=== PATIENT | female | born 1990 | race Caucasian/White ===

== ENCOUNTER 2019-07-25 08:13 | Outpatient (CLI) | payer OTHER, SELFPAY ==
--- NOTE | ~2019-07-25 | XR_ITS ---
EXAMINATION: XR small bowel follow through EXAM DATE: 07/25/2019 10:07 INDICATION: Intussusception in February, status post partial small bowel resection. Abdominal pain. TECHNIQUE: [employer] radiograph was acquired. Small bowel series was performed with thin barium solutio n. Spot images of the terminal ileum were acquired. The DAP for this procedure was 48 Gycm2. There is no prior study for comparison. FINDINGS: On the 15 minute image, the stomach was distended with contrast and there was a small to mo derate-sized hiatal hernia with reflux demonstrated. Ileal and jejunal fold patterns are normal. There is no small bowel wall thickening or mass effect d isplacing small bowel. There are no intraluminal filling defects identified. There is no small anju l dilation. Terminal ileum is normal in appearance. Contrast reached the colon at 1 hours time. IMPRESSION: Small to moderate-sized hiatal hernia with reflux demonstrated. Unremarkable small bowel . Reviewed, dictated and finalized at location A. ER [facility] IMPRESSION: Small to moderate-sized hiatal hernia with reflux demonstrated. Un remarkable small bowel.
== END 2019-07-25 08:14 | disposition home or self-care (01) ==
LOC: ANHIMG 08:15
PROVIDERS: PCP Family Medicine; Visit Provider Internal Medicine Gastroenterology
DX: K56.1 Intussusception (principal); K44.9 Diaphragmatic hernia without obstruction or gangrene
CPT/HCPCS: 74250

== ENCOUNTER 2020-12-22 16:22 | Outpatient (RCR) | payer OTHER, SELFPAY ==
[2020-12-08 17:01] VITALS: BP 119/73; PULSE 86
[2020-12-08 17:16] VITALS: BP 117/67; PULSE 85
[2020-12-08 17:39] VITALS: BP 117/67; PULSE 85
[2020-12-11 08:39] VITALS: BP 111/66; PULSE 82
[2020-12-22 18:45] VITALS: BP 92/70; PULSE 80
== END 2020-12-23 15:40 | disposition home or self-care (01) ==
LOC: ANHOBOP 16:22
PROVIDERS: PCP Nurse Practitioner Family; Visit Provider Obstetrics & Gynecology
DX: O24.419 Gestational diabetes mellitus in pregnancy, unspecified control (principal); Z3A.33 33 weeks gestation of pregnancy; Z3A.34 34 weeks gestation of pregnancy; Z3A.35 35 weeks gestation of pregnancy
CPT/HCPCS: 59025

== ENCOUNTER 2020-12-23 08:37 | Inpatient (IN) | payer OTHER, SELFPAY ==
[2020-12-23] VITALS (128 sets, daily range): BP systolic 87–143; BP diastolic 40–90; PULSE 58–149; RESP 16–18; TEMP 36.3–36.8; O2SAT 87–100; BMI 36.8
[2020-12-23 09:58] LABS: Glucose Point of Care 101 mg/dl (65-105)
--- NOTE | 2020-12-23 10:00 | LDADM ---
This patient, Marianne Bell, was admitted to Labor/Delivery/Recovery 104 on 12/23/20 at 08:37. Plans for labor, pain management and were discussed with patient. Patient/family oriented to hospital policies and general routines including ID bracelet, bed and alarms, visiting hours, pain management, procedures, bathroom and other care routines, personal items, smoking policy, room service/diet and guest tray routines, security routines, and visiting hours. Patient/Family are encouraged to report perceived risks to care and to ask questions if they do not understand what they are told or what they should do. See OBIX for further documentation.
[2020-12-23 10:27] LABS: Basophils Absolute Auto 0.1 K/mm3 (0.0-0.1); Basophils Percent Auto 0.5 % (0.2-1.2); Eosinophils Absolute Auto 0.1 K/mm3 (0-0.3); Eosinophils Percent Auto 0.5 % (0-4.4); Hematocrit 34.1 % (37.0-47.0); Hemoglobin 11.1 g/dL (12.0-15.0); Immature Granulocyte Absolute 0.24 K/mm3 (0.00-0.031); Immature Granulocyte Percent A 2.1 % (0-0.5); Lymphocytes Absolute Auto 1.99 K/mm3 (0.9-3.2); Lymphocytes Percent Auto 17.5 % (18.3-44.2); Mean Corpuscular HGB Conc 32.6 g/dl (32-36); Mean Corpuscular Hemoglobin 28.3 pg (26-34); Monocytes Percent Auto 8.7 % (2.6-8.5); Neutrophils Absolute Auto 8.1 K/mm3 (1.3-6.7); Neutrophils Percent Auto 70.7 % (45.5-73.1); Platelet Count Result 187 k/mm3 (150-375); Red Blood Count 3.92 M/mm3 (4.2-5.4); Red Cell Distribution Width 18.6 % (11.5-14.5); White Blood Count 11.4 K/mm3 (4.5-10.0)
[2020-12-23] MEDS: LACTATED RINGERS 1,000 ML 125 ML IV CONT ×2 (10:30→17:26)
[2020-12-23] MEDS: AMPICILLIN 2 GM/NS 100 ML 2 GM/100 ML BAG IVPB (10:30)
[2020-12-23 11:58] LABS: Glucose Point of Care 70 mg/dl (65-105)
[2020-12-23] MEDS: OXYTOCIN 30 UNITS/NS 500 ML 30 UNITS/500 ML BAG IV CONT (13:48)
[2020-12-23] MEDS: AMPICILLIN 1 GM/NS 50 ML 1 GM/50 ML BAG IVPB ×2 (14:48→18:42)
[2020-12-23] MEDS: fentaNYL CITRATE INJ (*CRX) 100 MCG/2 ML VIAL IV PUSH (16:51)
--- NOTE | 2020-12-23 17:21 | WPDANESEPP ---
Anes - Eval Pre Procedure Procedure: labor epidural Date/Time: 12/23/20 17:21 Surgeon: matthew Pre Op Diagnosis: rupture of membrane Patient Data Age: 30 Gender: F Height: 1.63 m Weight: 97.2 kg Last Vital Signs Pulse 82 12/23/20 17:00 BP 123/80 12/23/20 17:00 Allergies Allergy/AdvReac Type Severity Reaction Status Date / Time acetaminophen Allergy Unknown VOMITING Verified 07/10/19 10:49 hydrocodone Allergy Unknown VOMITING Verified 07/10/19 10:49 Home Medications Medication Instructions Recorded Confirmed Type famotidine 20 mg tablet 20 mg PO DAILY PRN 07/10/19 12/23/20 History omeprazole 40 mg capsule,delayed 40 mg PO DAILY 07/10/19 12/23/20 History release PNV cmb#95-ferrous fumarate-FA 1 tablet PO DAILY 12/23/20 12/23/20 History [] ergocalciferol (vitamin D2) 50,000 unit PO 2XW 12/23/20 12/23/20 History ferrous sulfate 325 mg PO DAILY 12/23/20 12/23/20 History insulin NPH isoph U-100 human 20 unit SUBCUT HS 12/23/20 12/23/20 History [Humulin N NPH U-100 Insulin] sertraline 50 mg PO HS 12/23/20 12/23/20 History Laboratory Tests 12/23/20 12/23/20 12/23/20 09:48 09:54 09:54 WBC 11.4 K/mm3 H K/mm3 (4.5-10.0) RBC 3.92 M/mm3 L M/mm3 (4.2-5.4) Hgb 11.1 g/dL L g/dL (12.0-15.0) Hct 34.1 % L % (37.0-47.0) MCV 87.0 fl fl (80-100) MCH 28.3 pg pg (26-34) MCHC 32.6 g/dl g/dl (32-36) RDW 18.6 % H % (11.5-14.5) Plt Count 187 k/mm3 k/mm3 (150-375) MPV 13.0 fl H fl (7.4-10.4) Immature Gran % (Auto) 2.1 % H % (0-0.5) Neut % (Auto) 70.7 % % (45.5-73.1) Lymph % (Auto) 17.5 % L % (18.3-44.2) [place] % (Auto) 8.7 % H % (2.6-8.5) Eos % (Auto) 0.5 % % (0-4.4) Baso % (Auto) 0.5 % % (0.2-1.2) Lymph # (Auto) 1.99 K/mm3 K/mm3 (0.9-3.2) [place] # (Auto) 1.0 K/mm3 H K/mm3 (0.1-0.6) Eos # (Auto) 0.1 K/mm3 K/mm3 (0-0.3) Baso # (Auto) 0.1 K/mm3 K/mm3 (0.0-0.1) Abs Immat Gran (auto) 0.24 K/mm3 H K/mm3 (0.00-0.031) Absolute Neuts (auto) 8.1 K/mm3 H K/mm3 (1.3-6.7) Absolute Nucleated RBC 0.0 K/mm3 K/mm3 (0.0-0.012) Nucleated RBC % 0.0 % % (0.0-0.2) POC Capillary Glucose 101 mg/dl mg/dl (65-105) RPR Pending Blood Type Antibody Screen 12/23/20 12/23/20 09:54 11:54 WBC RBC Hgb Hct MCV MCH MCHC RDW Plt Count MPV Immature Gran % (Auto) Neut % (Auto) Lymph % (Auto) [place] % (Auto) Eos % (Auto) Baso % (Auto) Lymph # (Auto) [place] # (Auto) Eos # (Auto) Baso # (Auto) Abs Immat Gran (auto) Absolute Neuts (auto) Absolute Nucleated RBC Nucleated RBC % POC Capillary Glucose 70 mg/dl mg/dl (65-105) RPR Blood Type O Positive Antibody Screen Negative Patient hx anesthesia problems: none Family hx anesthesia problems: none PMFSH Past Medical History Medical History (Updated 07/22/19 @ 14:37 by Celestino Mims MD) Abdominal pain Anxiety HLD (hyperlipidemia) IBS (irritable bowel syndrome) Nausea and vomiting in adult Normal colonoscopy (~2019) Small bowel intussusception Surgical History Surgical History History of esophagogastroduodenoscopy (EGD) (~2019) S/P small bowel resection Family History Family History Father Family history of elevated blood lipids Sibling Family history of elevated blood lipids Grandparent Carcinoma of colon Other Family history of malignant neoplasm of breast Soc
[2020-12-23 17:49] LABS: Glucose Point of Care 72 mg/dl (65-105)
[2020-12-23 19:52] LABS: Glucose Point of Care 78 mg/dl (65-105)
[2020-12-23] MEDS: ONDANSETRON INJ 4 MG/2 ML VIAL IV PUSH (21:23)
[2020-12-23 23:40] LABS: Glucose Point of Care 95 mg/dl (65-105)
[2020-12-24] VITALS (141 sets, daily range): BP systolic 102–151; BP diastolic 49–93; PULSE 72–164; RESP 18; TEMP 36.4–36.9; O2SAT 94–100
--- NOTE | 2020-12-24 00:18 | P.HP_ITS ---
Obstetrics - Admit Note Admission Note: record reviewed. No pertinent additions to the history and/or any subsequent changes in the physical findings that are not consistent with the expected course of the were found. Called to bedside for decel strip reviewed. decel noted at 1830 5 min bradycardia after epidural with bp noted to be low resolved with IV fluids and position changes. some random variable and late decels noted with good variablilty. recent decel at 1200 resolved with position changes. cervix 5/90/- 2 cm pitocin off and amnio infusion started. Additions to the history and/or subsequent changes in the physical findings follow. None.
[2020-12-24] MEDS: SODIUM CHLORIDE 0.9% IV 300 ML 600 ML I-UTERINE (00:21)
[2020-12-24] MEDS: SODIUM CHLORIDE 0.9% IV 1,000 ML 150 ML I-UTERINE ×2 (01:02→05:48)
[2020-12-24] MEDS: AMPICILLIN 1 GM/NS 50 ML 1 GM/50 ML BAG IVPB ×2 (01:41→05:49)
[2020-12-24] MEDS: LACTATED RINGERS 1,000 ML 125 ML IV CONT (03:45)
[2020-12-24 05:00] LABS: Glucose Point of Care 91 mg/dl (65-105)
[2020-12-24] MEDS: fentaNYL CITRATE INJ (*CRX) 100 MCG/2 ML VIAL 50 MCG IV PUSH (07:35)
[2020-12-24] MEDS: OXYTOCIN 30 UNITS/NS 500 ML 30 UNITS/500 ML BAG 125 UNITS IV CONT (07:41)
[2020-12-24] MEDS: IBUPROFEN 600 MG TABLET PO ×2 (08:49→22:54)
[2020-12-24] MEDS: WITCH HAZEL 40 PADS 1 PAD TOPICAL (08:50)
[2020-12-24] MEDS: BENZOCAINE 20% AER SPR (*SP) 56 GM CAN 1 SPRAY TOPICAL (11:08)
[2020-12-24 12:11] LABS: Rapid Plasma Reagin Non-Reactive (NonReactive)
--- NOTE | 2020-12-24 15:40 | PC.NURSE ---
Mother called out for assist with feeding. mother reports infant has not latched since and has bottle fed after all attempts. Discussed establishing in the may be more difficult due to their immaturity, infant may be less alert, have less stamina, and have greater difficulty with latch, suck, and swallow. Skin is intact on both nipples, no redness or bruising noted. is able to freely thrust tongue past gum ridge. Reviewed feeding cues, frequencies, duration of feedings, feeding elimination flow sheet, and signs of adequate intake. Demonstrated stimulation techniques to wake for feeding. Assisted with infant to breast. Reviewed positioning/alignment in cross cradle, holding breast in ?U? hold and guided asymmetrical latch on. able to latch correctly. Infant nursed weakly with a few good draws and occasional swallowing noted followed with long pausing. Suggested mother stimulate while feeding to increase stimulate, increase intake and to assist with maintaining deep latch. Reviewed signs of a correct latch, effective nursing and suck swallow ratio. would slip to shallow latch, mother reports tenderness. Demonstrated how to adjust latch more deeply while feeding. Mother reports she can feel change in latch and has no tenderness. Nipple care reviewed of lanolin after feedings, warm compresses as needed. Discussed the difference of effective feeding and ineffective feeding. Discussed infant is latching with some organized suck swallow, he is not adequately transfer milk at this time and needs to be supplemented after each feeding. Mother should initiate pumping to stimulate milk supply. Parents voice understanding to all. Instructed mother to call out for RN assistance if she is unable to latch infant for feeding or she has discomfort with nursing.
--- NOTE | 2020-12-24 16:00 | PC.NURSE ---
Breast pump provided due to ineffective feeding. Instructions given on breast pump care and usage, pumping schedule, nipple care, and collection and storage of breast milk. Encouraged [id number], breast massage and manual expression to stimulate supply. Assessed patient for correct flange size, placement and draw. Patient verbalizes and demonstrates understanding of instructions.
[2020-12-24] MEDS: DOCUSATE SODIUM 100 MG CAPSULE PO (22:55)
[2020-12-25 00:09] VITALS: BP 113/55; PULSE 96; RESP 18; TEMP 36.6; O2SAT 97
[2020-12-25 04:10] VITALS: BP 106/62; PULSE 98; RESP 20; TEMP 36.3; O2SAT 97
[2020-12-25 05:46] LABS: Hematocrit 22.1 % (37.0-47.0)
[2020-12-25 06:16] LABS: Hemoglobin 6.9 g/dL (12.0-15.0)
--- NOTE | 2020-12-25 07:54 | PM.OBPNVD ---
OB - PN: Subj Subjective Date/time seen: 12/25/20 07:54 S: doing okay denies dizziness bleeding minimal OB - PN: Obj Data Labs CBC & Chem 7: 12/25/20 04:05 Labs: Laboratory Results - last 24 hr 12/23/20 12/25/20 09:54 04:05 Hgb 6.9 L* D Hct 22.1 L RPR Non-reactive OB - PN A/P Assessment and Plan (1) (normal spontaneous vaginal delivery): Code(s): O80 - Encounter for full-term uncomplicated delivery Status: Acute Assessment and Plan: continue with pp care (2) PPH ( hemorrhage): Code(s): O72.1 - Other immediate hemorrhage Status: Acute Assessment and Plan: stable continue to monitor vitals and symptoms. iron supplements. Time Spent With Patient Time: Total time spent is greater than 50% in coordination of care (as documented) at patient's floor/unit and/or counseling patient: Exam Narrative: Exam Narrative: ff below umbilicus
[2020-12-25] MEDS: MULTIVIT/MIN/PREN/FOL AC/IRON TABLET 1 TAB PO (09:04)
[2020-12-25] MEDS: POLYSACCHARIDE IRON COMPLEX 150 MG CAPSULE PO (09:05)
[2020-12-25] MEDS: DOCUSATE SODIUM 100 MG CAPSULE PO ×2 (09:05→17:37)
[2020-12-25] MEDS: IBUPROFEN 600 MG TABLET PO ×3 (09:05→20:53)
[2020-12-25 09:10] VITALS: BP 133/67; PULSE 105; RESP 16; TEMP 36.5; O2SAT 98
[2020-12-25] MEDS: PANTOPRAZOLE 40 MG TABLET PO ×2 (10:26→17:37)
--- NOTE | 2020-12-25 13:23 | WPDANLDPN2 ---
Anes-Prog Note L&D Date/Time: 12/25/20 13:23 Comfortable throughout: labor and delivery Neuraxial method: epidural Epidural/Spinal procedure site: clean & non-tender Neuro status: Neuro function grossly intact. Cardiovascular status: normal Respiratory status: normal Airway patency: baseline Mental status: baseline Post-Op hydration status: normal Vital Signs: Last Vital Signs Temp 36.5 C 12/25/20 09:10 Pulse 105 H 12/25/20 09:10 Resp 16 12/25/20 09:10 BP 133/67 12/25/20 09:10 Pulse Ox 98 12/25/20 09:10 Pain score (VAS): 2 Post-procedural complaints: none Patient feedback: Patient satisfied with anesthetic care.
--- NOTE | 2020-12-25 14:23 | PM.OBPRVD ---
OB - Delivery Note Procedure Delivery date: 12/24/20 events: Labor < 37 Weeks, Gestational Diabetes, Labor Augmentation, Premature Rupture of Membrane and Prolonged Rupture of Membrane Intrapartal events: Bleeding Delivery augmentation: pitocin Delivery monitor: external FHT, external uterine, internal FHT and internal uterine Route of delivery: Laceration Description: Vaginal - 2nd Degree Delivery repair: vicryl Specimen: Yes Quantitative Blood Loss (ml): 942 Anesthesia type: Epidural Disposition: floor Baby Date of : 12/24/20 Time of : 07:02 Weeks of gestation at delivery: 36 Infant gender: Male Weight (pounds): 6 Weight (ounces): 4 presentation: vertex position: Left Occiput Anterior Placenta delivery description: Spontaneous cord vessel description: 3 Vessels and Clamped/Cut score one minute: 5 score five minutes: 7 score ten minutes: 9
[2020-12-25] MEDS: ACETAMINOPHEN 325 MG TABLET 650 MG PO (17:36)
[2020-12-25 19:40] VITALS: BP 128/80; PULSE 89; RESP 16; TEMP 37.1; O2SAT 99
--- NOTE | 2020-12-25 19:40 | PC.NURSE ---
Patient viewed the discharge video Mother & Baby Care, The First Two Weeks online. Patient was given the opportunity and encouraged to ask questions. Patient verbalized understanding of information shared and has been given the mother/baby guide for home reference.
[2020-12-25] MEDS: SERTRALINE HCL 50 MG TABLET PO (20:53)
[2020-12-26] MEDS: IBUPROFEN 600 MG TABLET PO ×2 (04:55→10:32)
[2020-12-26 10:30] VITALS: PULSE 89; RESP 16; O2SAT 99
[2020-12-26] MEDS: DOCUSATE SODIUM 100 MG CAPSULE PO (10:31)
[2020-12-26] MEDS: PANTOPRAZOLE 40 MG TABLET PO (10:32)
[2020-12-26] MEDS: MULTIVIT/MIN/PREN/FOL AC/IRON TABLET 1 TAB PO (10:32)
--- NOTE | 2020-12-26 10:46 | PM.OBPNVD ---
OB - PN: Subj Subjective Date/time seen: 12/26/20 10:46 Patient comments: no complaints and pain well controlled baby status: doing well and nursing well OB - PN: Obj Data Labs CBC & Chem 7: 12/25/20 04:05 OB - PN A/P Assessment and Plan (1) PPH ( hemorrhage): Code(s): O72.1 - Other immediate hemorrhage Status: Acute Assessment and Plan: iron BID x 8 wks (2) (normal spontaneous vaginal delivery): Code(s): O80 - Encounter for full-term uncomplicated delivery Status: Acute Assessment and Plan: DC home Plans micronor Time Spent With Patient Time: Total time spent is greater than 50% in coordination of care (as documented) at patient's floor/unit and/or counseling patient: Exam : Bimanual exam- vagina & uterus: other (Uterus firm, nt @U)
[2020-12-26 11:48] VITALS: BP 131/71; PULSE 91; RESP 16; TEMP 36.6; O2SAT 100
[2020-12-28 08:24] VITALS: BP 128/76; PULSE 95; RESP 20; TEMP 36.9; O2SAT 100
--- NOTE | 2021-01-05 11:29 | PM.OBDSVD ---
DS: Admitting Diagnosis Admitting Diagnosis Admitting Diagnosis: PROM OB - DS: Summary OB Procedures : Ultrasound OB Procedures Intrapartum: Spontaneous Vag Delivery OB Procedures: : None Time Spent with Patient Time attestation: Total time spent providing and/or coordinating discharge services: DS: Data Data Completed and Pending Completed studies during hospitalization: Pending at discharge 12/24/20 07:06 Surgical [PTH] Routine Discharge Plan Discharge Attending physician on discharge: Eliu Jin Discharging Clinician: Eliu Jin Patient Disposition: Home, Self-Care Activity: pelvic rest Diet: regular Discharge Instructions: Education: Mom and Baby Guide Given to: Mother Follow-Up: Call your delivering provider's office for an appointment to be seen in: 4 Weeks Mom and baby should come to the [facility] for the follow-up appointment. Appointment Date/Time: December 28, 2020 at 8:00 am What to expect at your follow-up visit: Blood Pressure Check Physical Assessment Call [phone] if you are unable to keep your appointment time. BREAST CARE: * Wear a snug supportive bra. * For engorgement discomfort: Breast Feeding: * Apply warm moist washcloths * Express milk as needed to relieve engorgement * Wear loose clothing Bottle Feeding: * May apply ice packs * For sore nipples: * Identify correct latch-on * Apply warm moist washcloths before and after nursing * Air dry nipples after nursing * May apply Lansinoh cream to nipples EPISIOTOMY/PERINEAL CARE: * Until bleeding stops, use your neris bottle after urinating * Change your pad frequently throughout the day * You may take sitz baths several times a day (fill your bathtub with warm water and soak for 20 minutes.) Do NOT bathe in the water * No tub baths until seen by your physician - You may shower ACTIVITY: * Rest as much as possible. * Do not exercise or lift anything heavier than your baby (such as laundry or other children.) * Avoid stairs or driving as much as possible. * Do not put anything into the vagina. No douching, tampons, or sexual activity until seen by physician. NOTIFY PHYSICIAN IF YOU HAVE ANY QUESTIONS OR IF ANY OF THE FOLLOWING SYMPTOMS OCCUR: * If your vaginal delivery becomes red, swollen, or more painful than what you have experienced in the hospital. * If your vaginal bleeding becomes foul smelling. * If your vaginal bleeding becomes more heavy than a period or if your bleeding changes from pink to bright red. However, you may pass an occasional walnut-sized clot once or twice for the first week . * If you experience a sharp, shooting pain in your calves. * If you discover a hard, reddened area on your breast or if you experience flu-like symptoms. DIET: * Eat regular, well-balanced meals. * Drink plenty of fluids daily. If , drink to thirst. Patient Instructions: Vaginal Delivery (DC) Stand Alone Forms: General Discharge Information Follow-up/Referrals: Eliu Jin MD [Physician] - Discharge Medications: New norethindrone (contraceptive) 0.35 mg tablet 0.35 mg PO DAILY Qty: 84 RF: 3 Continued omeprazole 40 mg capsule,delayed release(DR/EC) 40 mg PO DAILY RF: 0 famotidine 20 mg tablet 20 mg PO DAILY PRN (Reason: Heartburn) RF: 0 ergocalciferol (vitamin D2) 1,250 mcg (50,000 unit) capsule 50,000 unit PO 2XW RF: 0 sertraline 50 mg tablet 50 mg PO HS RF: 0 ferrous sulfate 325 mg (65 mg iron) Tablet 325 mg PO DAILY RF: 0 PNV cmb#95-ferrous fumarate-FA [] 28 mg iron- 800 mcg Tablet 1 tablet PO DAILY RF: 0 Discontinued Humulin N NPH U-100 Insulin 100 unit/mL suspension 20 unit SUBCUT HS RF: 0 Date of admission: 12/23/20 08:37 Primary Care Provider: WILDER,SPRING Admitting
== END 2020-12-26 12:33 | disposition home or self-care (01) | DRG 806 ==
LOC: ANHOB2 12-26 11:18 → ANHLDR 12-29 11:24 → ANHOB2 12-29 11:24
PROVIDERS: Admitting Provider Obstetrics & Gynecology; PCP Nurse Practitioner Family; Visit Provider Obstetrics & Gynecology Gynecology
DX: O60.14X0 Preterm labor third trimester with preterm delivery third trimester, not applicable or unspecified (principal); O72.1 Other immediate postpartum hemorrhage; Z37.0 Single live birth; O76 Abnormality in fetal heart rate and rhythm complicating labor and delivery; O70.1 Second degree perineal laceration during delivery; Z3A.36 36 weeks gestation of pregnancy; O42.913 Preterm premature rupture of membranes, unspecified as to length of time between rupture and onset of labor, third trimester
CPT/HCPCS: 36415; 59025; 82948; 84112; 85014; 85018; 85025; 86592; 86850; 86900; 86901; 88307; A9270; J0290; J2405; J2590; J2795; J3010; J7030; J7120

== ENCOUNTER 2021-01-06 11:02 | Outpatient (RCR) | payer OTHER, SELFPAY ==
--- NOTE | 2021-01-06 11:15 | PC.NURSE ---
IN 1010 OUT 1115 HISTORY: Pt. delivered at [facility] at 36 weeks. had no complications after delivery. Mother had complications after delivery of a large blood loss. is now 13 days old. Infant appears to be well cared for. has been seen by ICP as scheduled. Infant last seen by ICP on at one week. Mother reports: was latching well in the hospital with minimal supplementation needed. Once home and her milk came in refused to latch. Mother began pumping and bottle feeding. Infant remains sleepy and needs to be awoken to feed for most feeding. does not show feeding cues or make any attempts to latch with attempts. When is attempted at breast, he does not open and mother is unable to get to latch. Mother states she pumps 1-2 oz every 3-4 hours with a Spectra pump. Infant will take 2 oz by bottle every 2-3 hours of EBM/formula. Infant is sleepy while feeding on the bottle, mother will stop a few times to wake to complete feedings. Mother wishes: For to breastfeed and increase supply using less formula. OBSERVATION: Currently at 9 wets per day and 9 /brown/yellow seedy pasty stools per day. weight:6#4 Discharge weight: Last Weight: 6#3 at 1 week ICP Tongue is able to move freely past gum ridge, bottom lip flanges easily, upper lip has a thick frenulum. Mother has everted nipples with skin intact no redness, blisters, scabbing or abrasions noted. Reviewed feeding cues, frequencies, duration of feedings, feeding elimination flow sheet, and signs of adequate intake. Demonstrated stimulation techniques to wake infant for feeding. Stimulation for several minutes before feeding cues noted. Last feeding 3.5 hours before attempt. Assisted with infant to breast. Mother was attempting in cradle positioning. Reviewed positioning/alignment in cross cradle, holding breast in U hold and guided asymmetrical latch on. Several attempts made infant was unable to draw nipple in to latch correctly. Offered and explain a nipple shield and how this may assist transitioning infant from bottle to breast. Discussed nipple shield precautions and possible complications. Instructions given on application and cleaning of shield. Patient able to return demonstration on proper application of shield. Discussed the need to continue regular pumping if continues to nurse with the shield. Patient verbalizes understanding. Infant was able to latch with shield. nursed eagerly with steady draws for short bursts followed with long pausing. Constant stimulation needed to keep infant awake and nursing. Demonstrated breast compressions to keep milk flowing and infant nursing. would respond with bursts of nursing. Infant had more pausing than effective nursing with occasional swallowing noted. Reviewed signs of a correct latch, effective nursing and suck swallow ratio. was able to maintain latch without discomfort to mother. Discussed is not nursing effectively enough to discontinue supplementation at this time. PLAN: Mother will follow above feeding plan to latch to one breast per feeding for 15-20 minutes, then supplement and pump. Mother will continue to offer the 2 oz after each feeding, increasing as infant desires. Mother will continue to pump after each feeding to assist with milk supply, with expectation that nursing at the breast each feeding may assist with increasing milk supply. Once infant is eagerly feeding on one breast for 10-15 minutes, mother will then offer second breast per feeding before supplementing. Advised mother not to discontinue supplementation until pre post weight feeding evaluation by ICP or . Mother will call with further questions or concerns. Follow up phone call scheduled for Monday01/11/21.
== END 2021-01-26 09:58 | disposition home or self-care (01) ==
LOC: ANHOBOP 11:02
PROVIDERS: PCP Nurse Practitioner Family; Visit Provider Pediatrics
DX: Z39.1 Encounter for care and examination of lactating mother (principal)
CPT/HCPCS: 99212; G0463

== ENCOUNTER 2022-11-06 18:55 | Inpatient (IN) | payer OTHER, SELFPAY ==
[2022-11-06] VITALS (17 sets, daily range): BP systolic 110–139; BP diastolic 55–85; PULSE 93–121; TEMP 36.2; BMI 42.3
--- NOTE | 2022-11-06 19:28 | LDADM ---
This patient, Marianne Bell, was admitted to Labor/Delivery/Recovery 102 on 11/06/22 at 18:55. Plans for labor, pain management and were discussed with patient. Patient/family oriented to hospital policies and general routines including ID bracelet, bed and alarms, visiting hours, pain management, procedures, bathroom and other care routines, personal items, smoking policy, room service/diet and guest tray routines, security routines, and visiting hours. Patient/Family are encouraged to report perceived risks to care and to ask questions if they do not understand what they are told or what they should do. See OBIX for further documentation.
--- NOTE | 2022-11-06 19:32 | WPDANESEPP ---
Anes - Eval Pre Procedure Procedure: Labor epidural Date/Time: 11/06/22 19:32 Surgeon: Nicole Preop Diagnosis: Abdominal pain with contractions Pre Op Diagnosis: IOL Patient Data Age: 32 Gender: F Height: Weight: Last Vital Signs Pulse 114 H 11/06/22 19:31 BP 136/71 11/06/22 19:31 Allergies Allergy/AdvReac Type Severity Reaction Status Date / Time hydrocodone Allergy Unknown VOMITING Verified 10/28/22 12:31 Home Medications Medication Instructions Recorded Confirmed Type famotidine 20 mg tablet 20 mg PO DAILY PRN Heartburn 07/10/19 12/23/20 History omeprazole 40 mg capsule,delayed 40 mg PO DAILY 07/10/19 12/23/20 History release ergocalciferol (vitamin D2) 1,250 50,000 unit PO 2XW 12/23/20 12/23/20 History mcg (50,000 unit) capsule vit no.95-ferrous 1 tablet PO DAILY 12/23/20 12/23/20 History fumarate 28 mg-folic acid 800 mcg tablet () sertraline 50 mg tablet 50 mg PO HS 12/23/20 12/23/20 History insulin NPH human semi-syn 100 8 unit subcut 10/28/22 History unit/mL subcutaneous suspension : gestational age HCG: positive Patient hx anesthesia problems: none Family hx anesthesia problems: none Results Review: All pre-operative results and documents have been reviewed as part of the pre-operative evaluation. [facility] Past Medical History Medical History Abdominal pain Anxiety HLD (hyperlipidemia) IBS (irritable bowel syndrome) Migraines Morbid obesity with BMI of 50.0-59.9, adult Nausea and vomiting in adult Normal colonoscopy (~2018) (normal spontaneous vaginal delivery) PPH ( hemorrhage) and not yet delivered Small bowel intussusception Surgical History Surgical History History of esophagogastroduodenoscopy (EGD) (~2018) S/P small bowel resection Family History Family History Father Family history of elevated blood lipids Sibling Family history of elevated blood lipids Grandparent Carcinoma of colon Other Family history of malignant neoplasm of breast Social History Social History Smoking status: Never smoker Second hand tobacco smoke exposure: No Alcohol intake: never Substance use: never Spiritual care concerns: No Exam Day of Procedure 11/06/22 19:32 Patient weight: super morbidly obese
[2022-11-06 20:06] LABS: Basophils Percent Auto 0.3 % (0.2-1.2); Eosinophils Absolute Auto 0.1 K/mm3 (0-0.3); Eosinophils Percent Auto 0.6 % (0-4.4); Hematocrit 36.6 % (37.0-47.0); Hemoglobin 12.2 g/dL (12.0-15.0); Immature Granulocyte Absolute 0.14 K/mm3 (0.00-0.031); Immature Granulocyte Percent A 1.2 % (0-0.5); Lymphocytes Absolute Auto 2.27 K/mm3 (0.9-3.2); Lymphocytes Percent Auto 18.9 % (18.3-44.2); Mean Corpuscular HGB Conc 33.3 g/dl (32-36); Mean Corpuscular Hemoglobin 29.2 pg (26-34); Mean Corpuscular Volume 87.6 fl (80-100); Mean Platelet Volume 12.2 fl (7.4-10.4); Monocytes Absolute Auto 0.9 K/mm3 (0.1-0.6); Monocytes Percent Auto 7.8 % (2.6-8.5); Neutrophils Absolute Auto 8.5 K/mm3 (1.3-6.7); Neutrophils Percent Auto 71.2 % (45.5-73.1); Platelet Count Result 202 k/mm3 (150-375); Red Blood Count 4.18 M/mm3 (4.2-5.4); Red Cell Distribution Width 14.1 % (11.5-14.5)
[2022-11-06 20:22] LABS: Alanine Aminotransferase 14 U/L (6-35); Albumin Level 3.6 g/dL (3.5-5.1); Alkaline Phosphatase 209 U/L (38-126); Anion Gap 8 mmol/L (8-16); Aspartate Amino Transferase 25 U/L (14-36); Bilirubin,Total 0.4 mg/dL (0.2-1.3); Blood Urea Nitrogen 8 mg/dL (7-17); Calcium 8.8 mg/dL (8.4-10.2); Carbon Dioxide 20 mmol/L (22-30); Chloride 106 mmol/L (98-107); Estimated CRCL calculation 165 ml/min; Estimated Glomerular Filt Rate > 60; Glucose 100 mg/dL (65-110); Potassium 3.7 mmol/L (3.4-5.0); Sodium 134 mmol/L (137-145)
[2022-11-06] MEDS: miSOPROStol 25 MCG TABLET BY MOUTH (20:28)
[2022-11-06 23:32] LABS: Glucose Point of Care 95 mg/dl (65-105)
[2022-11-07] VITALS (119 sets, daily range): BP systolic 80–150; BP diastolic 31–91; PULSE 63–115; RESP 18; TEMP 36.1–36.8; O2SAT 95–100
[2022-11-07] MEDS: miSOPROStol 25 MCG TABLET BY MOUTH (01:17)
[2022-11-07] MEDS: fentaNYL CITRATE INJ (*CRX) 100 MCG/2 ML VIAL IV PUSH ×2 (03:31→08:46)
[2022-11-07] MEDS: OXYTOCIN 30 UNITS/NS 500 ML 30 UNITS/500 ML BAG IV CONT (05:26)
[2022-11-07] MEDS: LACTATED RINGERS 1,000 ML 125 ML IV CONT ×2 (05:27→10:35)
[2022-11-07 05:38] LABS: Glucose Point of Care 88 mg/dl (65-105)
[2022-11-07] MEDS: SERTRALINE HCL 50 MG TABLET PO (07:01)
[2022-11-07] MEDS: PANTOPRAZOLE 40 MG TABLET PO (07:01)
--- NOTE | 2022-11-07 08:04 | WPDOBADMIT ---
Obstetrics - Admit Note Admission Note: record reviewed. No pertinent additions to the history and/or any subsequent changes in the physical findings that are not consistent with the expected course of the were found. Additions to the history and/or subsequent changes in the physical findings follow. None.
--- NOTE | 2022-11-07 08:04 | PM.OBPNLAB ---
Pain Control Date/time seen: 11/07/22 0750 Pain control: tolerating well Comments: Feeling occasional cramping. Pelvic Exam Dilation (cm): 3 (3.5) Effacement (%): 75 station: -3 Amniotic membrane status: Intact Contractions Monitor mode: External Contraction frequency: 3 (2-4) Contraction duration: 60 Contraction pattern: Irregular Contraction intensity: Mild Status status: Category l Assessment and Plan Pitocin rate (mU/min): 2 Assessment: induction ongoing Comments: CNM to bedside. Discussed plan of care an option for amniotomy and IUPC placement. Discussed risks, benefits, and expectations of breaking water and placing IUPC. Patient is agreeable to both. Amniotomy performed and there was a large return of clear amniotic fluid. IUPC inserted easily and tubing securred to pt's thigh. Patient tolerated procedure well. Plan to increase oxytocin as needed to achieve adequate contraction pattern. Dr. Rivera updated.
[2022-11-07] MEDS: LACTATED RINGERS 1,000 ML 999 ML IV CONT (08:47)
[2022-11-07 09:34] LABS: Glucose Point of Care 92 mg/dl (65-105)
[2022-11-07 09:46] LABS: Rapid Plasma Reagin Non-Reactive (NonReactive)
[2022-11-07 13:12] LABS: Glucose Point of Care 86 mg/dl (65-105)
--- NOTE | 2022-11-07 14:47 | PM.OBPRVD ---
OB - Delivery Note Procedure Delivery date: 11/07/22 Procedure: Events: Gestational Diabetes (GDMA2) and Gestational Hypertension Induction method: AROM, Per Misoprostol Protocol and Per Pitocin Protocol Delivery monitor: External FHT, External Uterine and Internal Uterine Route of delivery: Episiotomy description: None Laceration Description: Vaginal (1st degree) Delivery repair: vicryl Specimen: Yes Quantitative Blood Loss (ml): 75 Anesthesia type: Epidural Disposition: Floor Narrative: Patient arrived for induction of labor and made steady progress to complete dilation she pushed very well and quickly brought the head to a crown. She delivered the head over an intact perineum. A loose nuchal cord was identified. There was fair restitution and delivery of the anterior followed by the posterior shoulders and the remainder of the infant In the somersault position. The was placed on the maternal abdomen and dried and stimulated by the nursery staff. After 30-40 seconds of life the cord was doubly clamped and cut so that the infant could be further examined on the warmer. Cord blood, cord gases, and cord segment were obtained. There was excellent hemostasis. All delivery counts correct. [place] Date of : 11/07/22 Time of : 14:19 Weeks of gestation at delivery: 37 Infant gender: Male Weight (pounds): 7 Weight (ounces): 14 presentation: vertex position: Left Occiput Anterior Placenta delivery description: Spontaneous Cord Vessel Description: 3 Vessels, Nuchal Cord, Loose, Clamped/Cut and Delayed Cord Clamping score one minute: 8 score five minutes: 9
[2022-11-07] MEDS: OXYTOCIN 30 UNITS/NS 500 ML 30 UNITS/500 ML BAG 125 UNITS IV CONT (14:48)
--- NOTE | 2022-11-07 14:50 | PM.DS ---
DS: Admitting Diagnosis Discharge Date 11/09/22 Admitting Diagnosis 32 y.o. at 37 weeks gHTN GDMA2 Hx depression LGA Anxiety DS: Discharge Diagnosis Discharge Diagnosis (1) (normal spontaneous vaginal delivery): Code(s): O80 - Encounter for full-term uncomplicated delivery Status: Acute (2) Anxiety: Code(s): F41.9 - Anxiety disorder, unspecified Status: Acute (3) Mother currently breast-feeding: Code(s): Z39.1 - Encounter for care and examination of lactating mother Status: Acute (4) Gestational hypertension: Qualifiers: Trimester: third trimester Qualified Code(s): O13.3 - Gestational [-induced] hypertension without significant proteinuria, third trimester Code(s): O13.9 - Gestational [-induced] hypertension without significant proteinuria, unspecified trimester Status: Acute (5) Gestational diabetes mellitus (GDM) affecting third : Code(s): O24.419 - Gestational diabetes mellitus in , unspecified control Status: Acute DS: Summary Hospital Course Reason for hospitalization: Childbirth Hospital Course: Uncomplicated Status at Discharge Functional status at discharge: independent ambulation Overall status at discharge: patient is progressing back to baseline Time Spent with Patient Time attestation: Total time spent providing and/or coordinating discharge services: Exam Narrative: Alert and oriented. Mood is pleasant and cooperative. Urinating without difficulty. Denies passing any large clots. Perineum with minimal edema. Fundus firm and below umbilicus. Const: General: cooperative, healthy appearing, no acute distress and alert Orientation/consciousness: patient oriented x3 Limitations: no limitations Resp: Effort & Inspection: normal respiratory effort Auscultation: clear to auscultation bilaterally Cardio: Rate: regular rate GI: Inspection: normal to inspection Neuro: General: patient oriented x3 Extrem: General: normal to inspection Psych: Appearance: grossly normal Mental Status: mental status grossly normal Affect: normal affect Thought process: Normal thought process present DS: Data Data Completed and Pending Pending studies at discharge: Pending at discharge 11/07/22 14:26 Surgical [PTH] Routine Labs on day of discharge: Labs from last 24 hours 11/07/22 11/07/22 11/07/22 13:06 09:30 05:34 WBC RBC Hgb Hct MCV MCH MCHC RDW Plt Count MPV Immature Gran % (Auto) Neut % (Auto) Lymph % (Auto) Dickenson % (Auto) Eos % (Auto) Baso % (Auto) Lymph # (Auto) Dickenson # (Auto) Eos # (Auto) Baso # (Auto) Abs Immat Gran (auto) Absolute Neuts (auto) Absolute Nucleated RBC Nucleated RBC % Sodium Potassium Chloride Carbon Dioxide Anion Gap BUN Creatinine Estim Creat Clear Calc Estimated GFR Glucose POC Capillary Glucose 86 92 88 Calcium Total Bilirubin AST ALT Alkaline Phosphatase Total Protein Albumin RPR Blood Type Antibody Screen 11/06/22 11/06/22 11/06/22 23:29 20:01 20:00 WBC 12.0 H RBC 4.18 L Hgb 12.2 D Hct 36.6 L MCV 87.6 MCH 29.2 MCHC 33.3 RDW 14.1 Plt Count 202 MPV 12.2 H Immature Gran % (Auto) 1.2 H Neut % (Auto) 71.2 Lymph % (Auto) 18.9 Dickenson % (Auto) 7.8 Eos % (Auto) 0.6 Baso % (Auto) 0.3 Lymph # (Auto) 2.27 Dickenson # (Auto) 0.9 H Eos # (Auto) 0.1 Baso # (Auto) 0.0 Abs Immat Gran (auto) 0.14 H Absolute Neuts (auto) 8.5 H Absolute Nucleated RBC 0.0 Nucleated RBC % 0.0 Sodium 134 L Potassium 3.7 Chloride 106 Carbon Dioxide 20 L Anion Gap 8 BUN 8 Creatinine 0.50 L Estim Creat Clear Calc 165 Estimated GFR > 60 Glucose 100 POC Capillary Glucose 95 Calcium 8.8
--- NOTE | 2022-11-07 17:35 | OBPPTRN ---
Patient transferred to post room #292 via wheelchair. Support person present. Oriented to unit, room, information board, rooming in, admission packet and security measures. Patient verbalizes understanding.
[2022-11-07] MEDS: IBUPROFEN 600 MG TABLET PO (22:45)
[2022-11-08 05:15] VITALS: BP 125/79; PULSE 82; RESP 16; TEMP 36.2; O2SAT 98
[2022-11-08] MEDS: IBUPROFEN 600 MG TABLET PO ×2 (05:31→20:37)
[2022-11-08 05:38] LABS: Glucose Point of Care 82 mg/dl (65-105)
[2022-11-08 05:51] LABS: Hematocrit 33.1 % (37.0-47.0); Hemoglobin 10.8 g/dL (12.0-15.0)
--- NOTE | 2022-11-08 08:05 | PM.OBPNVD ---
OB - PN: Subj Subjective Date/time seen: 11/08/22 0774 Patient comments: no complaints and pain well controlled baby status: other (in nursery due to low blood sugars. ) feeding status: breast and bottle feeding Narrative: Desires to exclusively breastfeed. Supplementing PRN for sugar control. OB - PN: Obj Data Labs 11/08/22 05:30 11/06/22 20:01 Labs: Laboratory Results - last 24 hr 11/06/22 11/07/22 11/07/22 20:00 09:30 13:06 Hgb Hct POC Capillary Glucose 92 86 RPR Non-reactive 11/08/22 11/08/22 05:29 05:30 Hgb 10.8 L Hct 33.1 L POC Capillary Glucose 82 RPR OB - PN A/P Plan day: 1 Plan: routine care Time Spent With Patient Time: Total time spent is greater than 50% in coordination of care (as documented) at patient's floor/unit and/or counseling patient: Review of Systems Review of Systems: All systems reviewed & are unremarkable except as noted in HPI and below Exam Narrative: Alert and oriented. Mood is pleasant and cooperative. Tearful at times due to in nursery but WNL for circumstances. Urinating without difficulty. Denies passing any large clots. Perineum with minimal edema. Fundus firm and below umbilicus. Const: General: cooperative, healthy appearing, no acute distress and alert Orientation/consciousness: patient oriented x3 Limitations: no limitations Resp: Effort & Inspection: normal respiratory effort Auscultation: clear to auscultation bilaterally Cardio: Rate: regular rate GI: Inspection: normal to inspection Neuro: General: patient oriented x3 Extrem: General: normal to inspection Psych: Appearance: grossly normal Mental Status: mental status grossly normal Affect: normal affect Thought process: Normal thought process present
[2022-11-08 09:00] VITALS: BP 127/86; PULSE 98; RESP 18; TEMP 36.7; O2SAT 98
--- NOTE | 2022-11-08 10:13 | WPDANLDPN2 ---
Anes-Prog Note L&D Date/Time: 11/08/22 10:13 Comfortable throughout: labor and delivery Neuraxial method: epidural Epidural/Spinal procedure site: clean & non-tender Neuro status: Neuro function grossly intact. Cardiovascular status: normal Respiratory status: normal Airway patency: baseline Mental status: baseline Post-Op hydration status: normal Vital Signs: Last Vital Signs Temp 36.2 C L 11/08/22 05:15 Pulse 82 11/08/22 05:15 Resp 16 11/08/22 05:15 BP 125/79 11/08/22 05:15 Pulse Ox 98 11/08/22 05:15 O2 Del Method Room Air 11/06/22 19:21 Pain score (VAS): 06/28 I/O: Intake & Output 11/07/22 11/08/22 11/08/22 23:59 07:59 15:59 Intake Total 500 600 Output Total 615 2250 Balance -115 -1650 Post-procedural complaints: none Patient feedback: Patient satisfied with anesthetic care.
[2022-11-08] MEDS: ACETAMINOPHEN 325 MG TABLET 650 MG PO (10:55)
[2022-11-08] MEDS: MULTIVIT/MIN/PREN/FOL AC/IRON TABLET 1 TAB PO (10:55)
[2022-11-08] MEDS: DOCUSATE SODIUM 100 MG CAPSULE PO (10:56)
[2022-11-08 12:04] VITALS: BP 132/78; PULSE 93; RESP 18; TEMP 37.1; O2SAT 97
[2022-11-08 16:25] VITALS: BP 120/70; PULSE 88; RESP 16; TEMP 36.4; O2SAT 97
[2022-11-08 20:20] VITALS: BP 131/79; PULSE 102; RESP 16; TEMP 36.6; O2SAT 98
[2022-11-09] MEDS: ACETAMINOPHEN 325 MG TABLET 650 MG PO (04:24)
[2022-11-09 08:00] VITALS: BP 119/82; PULSE 97; RESP 18; TEMP 36.4; O2SAT 98
--- NOTE | 2022-11-09 08:57 | PM.OBPNVD ---
OB - PN: Subj Subjective Date/time seen: 11/09/22 08:35 Patient comments: no complaints and pain well controlled feeding status: breast and bottle feeding Narrative: Goal is exclusive . Nursing, pumping, and supplementing. OB - PN: Obj Data Labs 11/08/22 05:30 11/06/22 20:01 OB - PN A/P Plan day: 2 Plan: discharge home and follow up 6 weeks Time Spent With Patient Time: Total time spent is greater than 50% in coordination of care (as documented) at patient's floor/unit and/or counseling patient: Review of Systems Review of Systems: All systems reviewed & are unremarkable except as noted in HPI and below Exam Narrative: Alert and oriented. Mood is pleasant and cooperative. Urinating without difficulty. Denies passing any large clots. Perineum with minimal edema. Fundus firm and below umbilicus. Const: General: cooperative, healthy appearing, no acute distress and alert Orientation/consciousness: patient oriented x3 Limitations: no limitations Resp: Effort & Inspection: normal respiratory effort Auscultation: clear to auscultation bilaterally Cardio: Rate: regular rate GI: Inspection: normal to inspection Neuro: General: patient oriented x3 Extrem: General: normal to inspection Psych: Appearance: grossly normal Mental Status: mental status grossly normal Affect: normal affect Thought process: Normal thought process present
[2022-11-09] MEDS: IBUPROFEN 600 MG TABLET PO (09:32)
[2022-11-09] MEDS: DOCUSATE SODIUM 100 MG CAPSULE PO (09:33)
[2022-11-09] MEDS: MULTIVIT/MIN/PREN/FOL AC/IRON TABLET 1 TAB PO (09:33)
[2022-11-11 10:21] VITALS: BP 130/83; PULSE 84; RESP 20; TEMP 36.6; O2SAT 100
== END 2022-11-09 12:25 | disposition home or self-care (01) | DRG 807 ==
LOC: ANHLDR 11-07 14:54 → ANHOB2 11-07 18:01
PROVIDERS: Admitting Provider Obstetrics & Gynecology Gynecology; PCP Nurse Practitioner Family; Referring Provider Advanced Practice Midwife; Visit Provider Obstetrics & Gynecology Gynecology
DX: O24.429 Gestational diabetes mellitus in childbirth, unspecified control (principal); Z37.0 Single live birth; Z3A.37 37 weeks gestation of pregnancy; O13.4 Gestational [pregnancy-induced] hypertension without significant proteinuria, complicating childbirth; O69.81X0 Labor and delivery complicated by cord around neck, without compression, not applicable or unspecified; O99.344 Other mental disorders complicating childbirth; F41.9 Anxiety disorder, unspecified; O70.0 First degree perineal laceration during delivery
CPT/HCPCS: 36415; 80053; 82948; 85014; 85018; 85025; 86592; 86850; 86900; 86901; 88307; A9270; J2590; J2795; J3010; J7120

== ENCOUNTER → 2023-02-07 15:14 | Outpatient (CLI) | payer OTHER, SELFPAY ==
--- NOTE | ~2023-02-07 | US_ITS ---
EXAMINATION: US pelvic complete DATE: 02/07/2023 15:33 INDICATION: Abnormal uterine bleeding Comparison:No prior studies for comparison. TECHNIQUE: Multiple endovaginal sonographic images of the pelvis performed. FINDINGS: The uterus measures 7.7 x 3.3 x 4.4 cm. The endometrial complex measures 4 mm. The right ovary measures 3 x 1.4 x 2.8 cm and the left ovary measures 2.6 x 1.7 x 2.2 cm. There are small follicles in each ovary. Normal doppler signal in both ovaries. There is no free fluid in the pelvis. There are no abnormal masses seen on either side. IMPRESSION: 1. Unremarkable pelvic ultrasound. Reviewed, dictated and finalized at location L.
== END ==
PROVIDERS: PCP Nurse Practitioner Family; Visit Provider Advanced Practice Midwife
DX: N93.8 Other specified abnormal uterine and vaginal bleeding (principal)
CPT/HCPCS: 76856

== ENCOUNTER → 2023-03-20 08:14 | Outpatient (CLI) | payer OTHER, SELFPAY ==
--- NOTE | ~2023-03-20 | US_ITS ---
EXAMINATION: US right upper quadrant DATE: 03/20/2023 08:40 INDICATION: Right upper quadrant abdominal pain. TECHNIQUE: Multiple grayscale and Doppler ultrasound images of the abdomen were obtained. COMPARISON: Ultrasound kidneys 07/19/18 FINDINGS: The visualized portions of the head and body of the pancreas are normal. The liver is elida l. There is a 5.1 cm cyst of right kidney. The gallbladder is normal in size and contains a 6 mm poly p, likely a benign cholesterol polyp needing no follow-up. No gallstones or gallbladder wall thickeni ng. There was no sonographic Dorantes sign. The common duct is normal and measures 4 mm. IMPRESSION: 1. No etiology for the patient's symptoms. Reviewed, dictated and finalized at location E.
== END ==
PROVIDERS: PCP Nurse Practitioner Family; Visit Provider Nurse Practitioner Family
DX: R10.11 Right upper quadrant pain (principal); R10.13 Epigastric pain
CPT/HCPCS: 76705